=== PATIENT | female | born 1970 | race Caucasian/White ===

== ENCOUNTER 2017-05-24 06:45 | Day surgery (SDC) | payer OTHER ==
[2017-05-23 09:21] LABS: HEMATOCRIT 43.7 % (36.0-48.0); HEMOGLOBIN 14.4 g/dL (12-16); MCV 88.1 fL (80.0-100.0); MEAN PLATELET VOLUME 11.2 fL (7.4-10.4); RBC 4.96 10x6/uL (4.00-5.40); RDW 13.3 % (11.5-14.5); WBC 8.4 10x3/uL (4.8-10.8)
[~2017-05-24] VITALS: Ht 165.1 cm; Wt 72.6 kg
[~2017-05-24 06:45] MED LIST: ADVIL200 MG PO
[2017-05-24 08:11] VITALS: BP 97/63; Ht 165.1 cm; Wt 72.6 kg
[2017-05-24] MEDS ORDERED: DURICEF500 MG PO (09:40)
[2017-05-24] MEDS ORDERED: PERCOCET 5-3251 TAB PO (09:40)
--- NOTE | 2017-05-24 09:50 | NUR ---
RECEIVED PT FROM OR WITH CARLOS WRAP TO RT WRIST AND HAND, NOTED GOOD CAPILLARY REFILL.
--- NOTE | 2017-05-24 15:44 | NUR ---
1030 IV DC WITH CATHER TIP INTACT
--- NOTE | 2017-05-27 08:17 | OP ---
PATIENT NAME: MEGHNA ABDI MEDICAL RECORD: [id number] LOCATION:[facility] ADMISSION DATE: SURGEON: JAH THOMPSON DO DATE OF OPERATION: 05/24/2017 PREOPERATIVE DIAGNOSIS: Right carpal tunnel syndrome. POSTOPERATIVE DIAGNOSIS: Right carpal tunnel syndrome. PROCEDURE PERFORMED: Right endoscopic carpal tunnel. SURGEON: Jah Thompson DO. COPY CENTER OPERATOR: Lien Thompson, advanced nurse practitioner. INDICATIONS: Ms. Abdi is a 46-year-old female, who presented to my office with longstanding carpal tunnel symptoms. She said it has been going on for years. She complained of right hand numbness in the first 3 digits, waking her up at night and tired of the pain when she is driving and talking on the cell phone. She had an EMG, which revealed a conduction 4.15, which is greater than 3.5, which is normal and she was tired of dealing with this. 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 She was tired again with the problem and decided to undergo the above procedure. She was warned of the risks and benefits including continued numbness and that thenar eminence atrophy would not get better due to the duration of the symptoms. DESCRIPTION OF PROCEDURE: The patient was taken to the operative suite, placed in supine position, given general anesthetic by anesthesia, given 1 g Ancef preoperatively. The right arm was prepped and draped in a sterile fashion. Tourniquet was placed above the elbow. After she was prepped and draped in sterile fashion, a timeout was performed. Everyone is in agreement with the correct side, site and patient, and the procedure commenced. The right hand was wrapped with an Esmarch and exsanguinated. The tourniquet was inflated to 250 mmHg. The skin incision was then marked at the proximal wrist crease and an approximately 1-cm incision was made through the skin. Blunt dissection was then made down to the carpal tunnel using Ragnell's. The forearm fascia was released proximally using a pickup and scissors and then the dilator was used into the carpal tunnel, sounding off of the hook of the hamate and feeling the ridges of the transverse ligament on the anterior surface. She dilated and the sheath was then placed of a [employer] Realmway endoscopic carpal tunnel system was then placed into the carpal tunnel, ensuring that the median nerve was below it. The camera was then entered into the sheath and the transverse carpal ligament was noted to be directly above it. It was then probed to distal extent of it and to ensure that it was just the transverse carpal ligament. A rasp was then used to clean off the ligament giving good view and then the blade was entered and the transverse carpal ligament was divided. The scope was then turned to reveal both sides of the ligament that had been released and has herniated down into the void. The scope was then removed and a fin was used to view visually with direct visualization. The carpal tunnel scissors was used to release any of the remaining band that had possibly been left. Once that was done, it was all withdrawn and 8 mL of 0.5% Marcaine with epinephrine was injected around the site and the tourniquet was let down and pressure was held and the wound was closed using 5-0 Monocryl in inverted interrupted fashion. Steri-Strips, Adaptic, 4 x 4 were placed over the site wrapped in Kerlix and then lightly wrapped with Coban just on the hand and at the wrist. The patient was awakened OPERATIVE REPORT [id number] MEGHNA ABDI in stable condition and taken to PACU for recovery. Blood loss was minimal. TRANSINT:[id number] Voice Confirmation ID: [id number] DOCUMENT ID: [id number] JAH THOMPSON DO at 0817 CC: [id number] DICTATION DATE: 05/24/17 0944 FREEDOM OF INFORMATION OFFICER: 05/24/17 1457 [facility] 05/24/17 [facility] [address] [place] [id number]
== END 2017-05-24 13:00 | disposition home or self-care (01) ==
LOC: D.OPS 06:45 → D.PAN 08:00 → D.OPS 08:00 → D.PAN 08:30 → D.OPS 13:00
PROVIDERS: Anesthesiology
DX: G56.01 Carpal tunnel syndrome, right upper limb (principal); F17.200 Nicotine dependence, unspecified, uncomplicated; K21.9 Gastro-esophageal reflux disease without esophagitis; Z01.812 Encounter for preprocedural laboratory examination

== ENCOUNTER → 2017-06-28 13:42 | Outpatient (CLI) | payer OTHER ==
[2017-05-24 08:11] VITALS: BMI 26.6
[~2017-06-28 13:42] MED LIST changes: +DURICEF500 MG PO; +PERCOCET 5-3251 TAB PO
== END | disposition home or self-care (01) ==
LOC: D.MRI 13:42
DX: M54.12 Radiculopathy, cervical region (principal)

== ENCOUNTER 2018-01-08 00:11 | Emergency (ER) | payer OTHER ==
[2018-01-08 00:53] LABS: BASOPHILS 0.3 % (0-2); EOSINOPHILS 1.3 % (0-7); HEMOGLOBIN 14.4 g/dL (12-16); IMMATURE GRANULOCYTES 0.2 % (0-5); LYMPHOCYTES 38.6 % (15-50); MCH 29.4 pg (26.0-34.0); MCHC 33.5 g/dL (31.0-37.0); MCV 87.9 fL (80.0-100.0); MONOCYTES 7.2 % (2-11); NEUTROPHILS 52.4 % (40-80); PLATELET COUNT 242 10x3/uL (130-400); RBC 4.89 10x6/uL (4.00-5.40); RDW 13.4 % (11.5-14.5); WBC 11.4 10x3/uL (4.8-10.8)
[2018-01-08 01:04] LABS: APPEARANCE CLOUDY (CLEAR); BILIRUBIN NEGATIVE (NEGATIVE); COLOR DK YELLOW (YELLOW); GLUCOSE NEGATIVE (NEGATIVE); KETONE NEGATIVE (NEGATIVE); NITRITE NEGATIVE (NEGATIVE); PROTEIN 2+ mg/dL (NEGATIVE); UROBILINOGEN NORMAL (NORMAL)
[2018-01-08 01:05] LABS: BACTERIA FEW /hpf (NONE SEEN); EPITHELIAL CELLS 0-5 /hpf (0-5); MUCUS <1+ /lpf (NONE SEEN); WHITE CELLS - URINE 0-5 /hpf (0-5)
[2018-01-08 01:10] LABS: HCG SERUM NEGATIVE (NEGATIVE)
[2018-01-08 01:15] LABS: ALBUMIN 4.2 g/dL (3.4-5.0); ANION GAP 13.1 mmol/L (8-16); BILIRUBIN - TOTAL 0.3 mg/dL (0.2-1.3); CALCIUM 9.6 mg/dL (8.5-10.1); POTASSIUM - SERUM 4.1 mmol/L (3.5-5.1); PROTEIN - SERUM 7.9 g/dL (6.4-8.2)
== END 2018-01-08 03:07 | disposition home or self-care (01) ==
LOC: D.ER 00:11
PROVIDERS: Family Medicine
DX: N20.1 Calculus of ureter (principal); F17.200 Nicotine dependence, unspecified, uncomplicated